=== PATIENT | female | born 1975 | race Caucasian/White ===

== ENCOUNTER 2017-03-06 13:12 | Emergency (ER) | payer MEDICAID, OTHER ==
[~2017-03-06] VITALS: Ht 165.1 cm; Wt 53.0 kg
[2017-03-06 13:17] VITALS: BP 119/74
== END 2017-03-06 14:02 | disposition home or self-care (01) ==
LOC: ER 13:36
DX: F41.9 Anxiety disorder, unspecified (principal); R51 Headache; M54.2 Cervicalgia; Z88.0 Allergy status to penicillin
CPT/HCPCS: 99284